=== PATIENT | female | born 1980 | race Caucasian/White ===

== ENCOUNTER 2017-02-08 19:37 | Emergency (ER) | payer MEDICAID ==
[~2017-02-08] VITALS: Ht 162.6 cm; Wt 50.0 kg
[2017-02-08 19:45] VITALS: BP 94/62
[2017-02-08] MEDS ORDERED: IBUPROFEN 200 MG TABLET ONE ×3 (20:29→20:41)
[2017-02-08] MEDS ORDERED: IBUPROFEN 200 MG TABLET PO ONE (20:30)
== END 2017-02-08 21:37 | disposition home or self-care (01) ==
LOC: ED 20:51
DX: S93.491A Sprain of other ligament of right ankle, initial encounter (principal); S80.11XA Contusion of right lower leg, initial encounter; G89.11 Acute pain due to trauma; X50.1XXA Overexertion from prolonged static or awkward postures, initial encounter; Y93.31 Activity, mountain climbing, rock climbing and wall climbing; Y92.828 Other wilderness area as the place of occurrence of the external cause; Y99.8 Other external cause status
CPT/HCPCS: 99284